=== PATIENT | male | born 1975 | race Caucasian/White ===

== ENCOUNTER 2019-01-17 17:54 | Inpatient (IN) ==
[2019-01-17 18:40] LABS: BASO# 0.06 X1000 (0.0-0.2); BASO% 0.4 % (0.0-0.8); EOS# 0.11 X1000 (0.0-0.7); EOS% 0.7 % (0.0-10.0); HEMATOCRIT 50.2 % (42.0-52.0); HEMOGLOBIN 17.5 g/dL (14.0-18.0); IMM GRAN# 0.04 X1000 (0.0-0.04); IMM GRAN% 0.3 % (0.0-0.5); LYMPH# 2.85 X1000 (1.2-3.4); MCH 29.5 PG (27-31); MCHC 34.9 g/dL (33-37); MCV 84.5 FL (81-99); MONO# 1.13 X1000 (0.11-0.59); MONO% 7.5 % (1.7-9.3); MPV 11.9 FL (7.4-10.4); NEUT# 10.81 X1000 (1.4-6.5); NEUT% 72.1 % (42.2-75.2); PLT 213 X1000 (130-400); RBC 5.94 XMIL (4.7-6.1); RDW 12.2 % (11.5-14.5)
[2019-01-17 18:53] LABS: INR 0.9; PROTIME 12.6 Seconds (11.0-16.0); PTT 27.3 Seconds (22.3-41.8)
[2019-01-17 18:56] LABS: ESTIMATED GFR > 60
[2019-01-17] MEDS ORDERED: LOVENOX 1 MG/KG SUBQ ONE (19:01)
[2019-01-17] MEDS ORDERED: NORCO-10 PO ONE (19:02)
[2019-01-17 19:07] LABS: AGAP 13; ALBUMIN 4.1 g/dL (3.5-5.0); ALKALINE PHOSPHATASE 111 U/L (32-122); BUN 7 mg/dL (8-22); CALCIUM 9.5 mg/dL (8.8-10.2); CHLORIDE 96 mmol/L (98-107); COSMO 287; CREATININE 0.9 mg/dL (0.7-1.2); GOT 18 U/L (10-34); GPT 28 U/L (10-44); POTASSIUM 4.7 mmol/L (3.5-5.1); SODIUM 133 mmol/L (136-145); TCO2 24 mmol/L (25-35); TOTAL PROTEIN 7.4 g/dL (6.3-8.3)
[2019-01-17 19:08] LABS: GLUCOSE 499 mg/dL (70-104)
[2019-01-17] MEDS ORDERED: HUMULIN R SUBQ ONE (19:12)
[2019-01-17] MEDS ORDERED: HUMULIN R (PARKWAY) ONE (19:58)
[2019-01-17] MEDS ORDERED: LOVENOX SUBQ ONE (20:00)
--- NOTE | 2019-01-17 20:33 | Diag Imaging Result Doc PS360 ---
CT ANGIOGRM PULMONARY ARTERIES - 01/17/2019 INDICATION: low oxygen sat hx of bilat PE TECHNIQUE: Axial CT images were obtained after administering intravenous contrast. Coronal MIP images were generated. COMPARISON: 12/26/2017 FINDINGS: There are several bilateral acute pulmonary emboli involving both main pulmonary arteries and most every segmental pulmonary artery. There is a large clot burden. There is moderate fatty change of the liver. No infiltrates. Bones are intact. IMPRESSION: Numerous bilateral pulmonary emboli with a hiatal clot burden. This report was discussed with Dr. Burnett on 01/17/2019 at 8:30 PM and was readback. This exam was performed using automated exposure control, adjustment of mA or kV according to patient size, and/or use of iterative reconstruction technique Electronically signed by Jimmy Sigala 01/17/2019 8:31 PM
--- NOTE | 2019-01-17 20:35 | Extremity Venous Study ---
Venous U/S Right Leg - 01/17/2019 INDICATION: dvt TECHNIQUE: COMPARISON: None FINDINGS: There is extensive, occlusive deep venous thrombosis of the right popliteal, posterior tibial, and peroneal veins. There are also several varicose vein branches of the greater saphenous vein in the posterior thigh that are thrombosed completely. The the femoral veins are patent. IMPRESSION: Extensive deep venous thrombosis at the level of the knee and calf. Electronically signed by Jimmy Sigala 01/17/2019 8:33 PM
[2019-01-17] MEDS ORDERED: MORPHINE IV ONE ×2 (20:46→20:50)
[2019-01-17] MEDS ORDERED: TYLENOL PO PRN (23:35)
[2019-01-17] MEDS ORDERED: ZOFRAN IV PRN (23:35)
[2019-01-17] MEDS ORDERED: NORCO-5 PO PRN (23:36)
[2019-01-18] MEDS: HUMALOG (PARKWAY) SUBQ SCH ×4 (06:42→20:41)
[2019-01-18 08:48] LABS: HEMOGLOBIN 16.7 g/dL (14.0-18.0); MCH 30.1 PG (27-31); MCHC 34.1 g/dL (33-37); MCV 88.4 FL (81-99); MPV 11.9 FL (7.4-10.4); RBC 5.54 XMIL (4.7-6.1); RDW 12.3 % (11.5-14.5); WBC 10.75 X1000 (4.8-10.8)
[2019-01-18] MEDS: NORCO-7.5 PO PRN ×3 (08:55→20:40)
[2019-01-18] MEDS: ELIQUIS PO SCH (08:55)
[2019-01-18] MEDS ORDERED: GLUCOPHAGE XR PO SCH (09:00)
[2019-01-18 09:01] LABS: AGAP 12; ALBUMIN 3.8 g/dL (3.5-5.0); ALKALINE PHOSPHATASE 110 U/L (32-122); BUN 11 mg/dL (8-22); CALCIUM 9.1 mg/dL (8.8-10.2); CHLORIDE 97 mmol/L (98-107); COSMO 281; CREATININE 0.7 mg/dL (0.7-1.2); ESTIMATED GFR > 60; GLUCOSE 371 mg/dL (70-104); GOT 26 U/L (10-34); GPT 25 U/L (10-44); MAGNESIUM 1.9 mg/dL (1.5-2.7); POTASSIUM 4.9 mmol/L (3.5-5.1); SODIUM 133 mmol/L (136-145); TCO2 24 mmol/L (25-35); TOTAL PROTEIN 6.6 g/dL (6.3-8.3)
[2019-01-18 09:13] LABS: HEMOGLOBIN A1C 11.3 % (4.8-6.0)
--- NOTE | 2019-01-18 11:54 | HISTORY AND PHYSICAL ---
PRIMARY CARE PROVIDER: HUGO Mccallum. CHIEF COMPLAINT: Right leg pain and numbness. HISTORY OF PRESENT ILLNESS: This is a 43-year-old gentleman with a history of prior DVT and pulmonary embolus, who presented to the emergency room complaining of right calf and posterior thigh pain along with shortness of breath. He stated that this woke him up during the previous night and it has increased throughout the day, prompting his visit to the emergency room. He denied change in sensation to bilateral feet/toes. He reports a history of DVT/PE having his first DVT in 1998 after having an appendectomy. He reports pulmonary embolus and recurring DVT around 2 years ago for which he was placed on Eliquis. He reports being unable to fill his Eliquis over the last 2 months due to lack of insurance. He is unaware of a prior hypercoagulable workup or hematology evaluation. He denies a family history of clots. PAST MEDICAL HISTORY: 1. Prior DVT and PE. 2. Val-rkekkcq-smriojobk diabetes mellitus. 3. Renal stones. 4. Sleep apnea. PAST SURGICAL HISTORY: Appendectomy. SOCIAL HISTORY: He smokes 5 packs of cigarettes a week. He denies alcohol or illicit drug use. ALLERGIES: No known drug allergies. HOME MEDICATIONS: A list will be obtained by the nursing staff and once it is verified, we will review and restart as is appropriate. REVIEW OF SYSTEMS: Discussed with patient with pertinent positives stated in the HPI. He denied any syncope or dizziness, any chest pain, palpitations, a productive cough, any PND or orthopnea, any nausea, vomiting, diarrhea, constipation, black or bloody vomitus or stools , hematuria, dysuria, frequency urgency. PHYSICAL EXAMINATION: GENERAL: This is a 43-year-old gentleman who is lying back in the bed, in no distress. VITAL SIGNS: Blood pressure is 101/55, with a heart rate of 89, respirations are 17, temperature is 97.9 degrees oral with O2 saturation 96% on 2 L nasal cannula. EYES: Pupils equal, round, react to light. EOMs are intact. Sclerae anicteric. HEENT: Head is normocephalic, atraumatic. Mucous membranes are moist. NECK: Supple with trachea midline. CARDIOVASCULAR: Regular rate and rhythm. S1 and S2 appreciated. He has no increased work of breathing noted. He has no lower extremity edema. Pedal pulses are 4+ bilateral. With capillary refill < 3 seconds X 10 toes. Left leg posterior tibial and popliteal pulses are palpable. I am unable to palpate Left leg femoral, posterior tibial or popliteal pulses due to the patient's refusal. Warmth and color are symmetrical. PULMONARY: Breath sounds are diminished throughout, clear. Chest rises and falls symmetrically with respiration. Chest wall is nontender to palpation. GASTROINTESTINAL: Abdomen is soft, nontender, nondistended. Bowel sounds in all 4 quadrants. GENITOURINARY: He denies CVA or suprapubic tenderness. NEUROLOGIC: He is alert oriented x3 with cranial nerves II through XII grossly intact. SKIN: Warm and dry with no rashes or lesions noted. LABORATORY AND DIAGNOSTIC DATA: WBC is 15 with hemoglobin 17.5, hematocrit 50.2 , platelets of 213,000. D-dimer 4.05. Sodium 133, potassium 4.7, BUN 7, creatinine 0.9 with a glucose of 499. TSH is 4.91. Hemoglobin A1c is 11.3. Right lower extremity Doppler reveals extensive DVT at the level of the knee and calf with occlusive deep vein thrombosis of the right popliteal, posterior tibial and peroneal veins with several varicose vein branches of the greater saphenous vein in the posterior thigh by that are thrombosed completely. The femoral veins are patent. Pulmonary arteriogram reveals several bilateral acute pulmonary emboli involving both main pulmonary arteries and almost every segmental pulmonary artery. There is a large clot burden. There is moderate fatty change of the liver. No infiltrates. Bones are intact. ASSESSMENT AND PLAN: 1. Extensive bilateral pulmonary emboli. Restart Eliquis, Hypercoag labs 2. Occlusive deep venous thrombosis, right lower extremity. 3. Dyspnea on exertion secondary to #1. Check room air resting and walking O2 saturations. 4. Cyg-dhrqbow-pffiubvby diabetes. Check HgB A1C, pattern blood glucose with sliding scale insulin. 5. Obstructive sleep apnea. 6. Prior history of pulmonary embolism and deep venous thromboses. PLAN: The patient has been admitted to the medical-surgical floor and placed on telemetry which will continue. Of note, room air saturation was obtained about 25 minutes after oxygen was discontinued. He was 92% walking and 93 to 95 percent sitting. Continue appropriate home medications once they have been verified I discussed with the patient and his the importance of being vigilant in taking Eliquis to avoid further clots and possibly . We also discussed Hematology follow up, they requested Dr Yip, we will schedule an appointment 4 weeks after discharge so that he can discuss the results of his hyper coag workup and further treatment. Further treatments pending hospital course. I discussed with the patient and that arterial dopplers could not be performed due to clot being present. Dictated by HUGO Lew for Ochoa Newton MD This chart was documented by, HUGO Lew and accurately reflects the services performed, treatment plan and medical decisions as attested by the providers signature Ochoa Newton MD. cc: HUGO Lew MD [facility]
[2019-01-18] MEDS ORDERED: JANUVIA PO ONE (18:06)
--- NOTE | 2019-01-18 21:58 | HISTORY AND PHYSICAL ---
Patient seen and examined by myself. Full note dictated and discussed with nurse practitioner. Patient was seen in the ER with swelling. He has a scheduled outpatient appointment in [place] at the [facility] tomorrow. States he has been having some calf pain. Denies any real chest pain, shortness of breath, fevers or chills. Notes that he has stopped his Eliquis due to cough. He has lost his insurance. While in the ER, he was diagnosed with a right lower extremity DVT that was quite extensive as well as bilateral PE. PLAN: We will admit patient to the hospital and will follow. His A1c was 11.3. His blood sugars certainly are very poorly controlled at home as well. cc: Ochoa Newton MD
[2019-01-19] MEDS: ELIQUIS PO SCH ×3 (01:20→22:23)
[2019-01-19 06:23] LABS: HEMATOCRIT 48.2 % (42.0-52.0); HEMOGLOBIN 16.4 g/dL (14.0-18.0); MCH 29.3 PG (27-31); MCV 86.2 FL (81-99); MPV 11.9 FL (7.4-10.4); RBC 5.59 XMIL (4.7-6.1); RDW 12.1 % (11.5-14.5); WBC 11.09 X1000 (4.8-10.8)
[2019-01-19] MEDS: NORCO-7.5 PO PRN ×4 (06:39→22:59)
[2019-01-19] MEDS: HUMALOG (PARKWAY) SUBQ SCH ×2 (06:39→11:22)
[2019-01-19 06:41] LABS: AGAP 12; BUN 17 mg/dL (8-22); CALCIUM 8.8 mg/dL (8.8-10.2); CHLORIDE 98 mmol/L (98-107); COSMO 283; CREATININE 0.6 mg/dL (0.7-1.2); ESTIMATED GFR > 60; GLUCOSE 268 mg/dL (70-104); POTASSIUM 4.5 mmol/L (3.5-5.1); SODIUM 136 mmol/L (136-145); TCO2 26 mmol/L (25-35)
[2019-01-19] MEDS: JANUVIA PO SCH (08:27)
[2019-01-19 16:12] LABS: URINE SOURCE CLEAN CATCH
[2019-01-19 16:18] LABS: BILIRUBIN URINE NEGATIVE (NEGATIVE); BLOOD URINE NEGATIVE (NEGATIVE); COLOR YELLOW; GLUCOSE URINE >1000 mg/dL (NEGATIVE); KETONE URINE NEGATIVE (NEGATIVE); LEUKOCYTES URINE NEGATIVE (NEGATIVE); NITRITE URINE NEGATIVE (NEGATIVE); PROTEIN URINE TRACE mg/dL (NEGATIVE); SP GRAVITY URINE 1.031; TURBIDITY URINE CLEAR (CLEAR); UROBILINOGEN URINE NORMAL (NORMAL)
[2019-01-19 16:19] LABS: UR EPITHELIAL CELLS <10 /HPF (<10); URINE BACTERIA NEGATIVE /HPF; URINE RBC <10 /HPF (<10); URINE WBC <10 /HPF (<10)
[2019-01-19] MEDS: HUMULIN R SUBQ SCH ×2 (17:22→22:24)
--- NOTE | 2019-01-20 04:13 | DISCHARGE SUMMARY ---
ADMISSION DATE: 01/17/2019 DISCHARGE DATE: 01/19/2019 ADDENDUM: Patient seen and examined by myself. Full note dictated and discussed with nurse practitioner. On discharge, Mr. Kovacs is in no respiratory distress. He is saturating in the mid 90s off oxygen. He is having extensive pain in his right lower extremity where his DVT is. He currently is on pain medication and Eliquis. He did not fail Eliquis as an outpatient as unfortunately he had stopped taking his Eliquis, which is what led to his bilateral pulmonary emboli and extensive DVT. Mr. Kovacs's appears to be quite angry this morning. She frequently was raising her voice and appeared somewhat unwilling to listen to my responses. She states that she has not been told anything the whole time they have been here. But interesting she was able to repeat verbatim what I told her yesterday which is he has an extensive DVT, that he is going to have pain for several weeks and probably several months, he needs to stay off work for at least 2 weeks. He needs to take it easy for the next few days, but then has to start pushing himself to get up and start walking. Discussed that there is no medication that dissolves a clot and given the extensive nature even surgical intervention of his right lower extremity would be impossible. She was angry that his leg was swollen at times. Discussed that due to the back flow occlusion, he does not drain his leg well. He has very good pulses in his foot and when he stands gravity plus blood flow pumps down into his leg but has difficulty being reabsorbed. Interestingly, even after her telling me this is what we talked about yesterday she again stated that she was not told anything. She is angry that he is having difficulty walking. States that prior to coming to the hospital, he had no difficulty walking although yesterday she told me he came to the hospital because of pain in his leg. Again, I discussed with her that even though he was up and ambulating last week and even the day before he came in that does not mean that the DVT does not cause pain. Discussed that most folks have pain with DVTs. The patient's blood sugar unfortunately is terribly controlled at home. His A1c is 11.3. I discussed this with them. They do not check blood sugars at home. He is unsure of the last time he had labs drawn. We offered nutrition support in the hospital. She declined. Stated they were going home. Discussed with both of them the importance of diabetes control to include risk factors of kidney damage, vision damage, heart attacks, strokes, neuropathy, etc. We will add Januvia. Prescription was sent. As for the DVT, discussed with them that they need to follow up outpatient with Dr. Yip, hematology. We will attempt to make this appointment before discharge. Although patient regardless of his clotting factors should consider staying on Eliquis lifelong. This is his 2nd episode of a deep venous thrombosis. This one occurred while he was still at work. Had not been traveling, injured or laying around. That would certainly suggests that he has some clotting disorder. Discussed with them that we can attempt to transfer to [facility] so they can have a 2nd opinion. She declined. Discussed that [facility] and [facility] both are currently on diversion and that [facility] is not accepting any transfers unless it is an [facility] and thankfully that is not the case. cc: Ochoa Newton MD
[2019-01-20] MEDS: HUMULIN R SUBQ SCH ×3 (06:18→16:51)
[2019-01-20] MEDS: NORCO-7.5 PO PRN ×2 (06:22→16:52)
--- NOTE | 2019-01-20 07:16 | Diag Imaging Result Doc PS360 ---
EXAM: CHEST-PORTABLE 01/20/2019 HISTORY: dyspnea TECHNIQUE: AP portable at 0542 COMMENT: There are atelectatic changes in the left base which were not present on 12/26/2017. The inspiration is less optimal. IMPRESSION: Left lower lobe atelectasis versus pneumonia. Electronically signed by Luis Chand 01/20/2019 7:14 AM
[2019-01-20 07:41] LABS: HEMATOCRIT 49.1 % (42.0-52.0); HEMOGLOBIN 16.3 g/dL (14.0-18.0); MCH 29.4 PG (27-31); MCHC 33.2 g/dL (33-37); MCV 88.6 FL (81-99); MPV 12.2 FL (7.4-10.4); RBC 5.54 XMIL (4.7-6.1); RDW 12.4 % (11.5-14.5)
[2019-01-20 07:51] LABS: AGAP 10; BUN 17 mg/dL (8-22); CALCIUM 8.8 mg/dL (8.8-10.2); CHLORIDE 99 mmol/L (98-107); COSMO 285; CREATININE 0.7 mg/dL (0.7-1.2); ESTIMATED GFR > 60; GLUCOSE 264 mg/dL (70-104); POTASSIUM 4.3 mmol/L (3.5-5.1); SODIUM 137 mmol/L (136-145); TCO2 28 mmol/L (25-35)
[2019-01-20] MEDS: ELIQUIS PO SCH (09:55)
[2019-01-20] MEDS: JANUVIA PO SCH (09:55)
[2019-01-20] MEDS ORDERED: MAXIPIME 1 GM in NS 50 ML IV SCH (10:45)
[2019-01-20] MEDS ORDERED: ZYVOX 600 MG/D5W 600 MG/300 ML IVPB IV SCH (10:45)
--- NOTE | 2019-01-20 15:32 | ECHO REPORT ---
ORDER DATE: 01/19/2019 ECHOCARDIOGRAM: INDICATION: Pulmonary embolus. FINDINGS: 1. Right atrium appears normal in size. 2. There is mild tricuspid regurgitation. RV systolic pressure of 35. 3. Normal RV size and systolic function. There is some obscurity near the more apical portions of the right ventricle with difficult visualization in that area. It does not appear to clearly suggest clot in that portion. I believe this is most likely off-axis views of a moderator band. 4. No significant pulmonic insufficiency. 5. Normal left atrial size at 3.6 cm. 6. No mitral prolapse. Trace mitral regurgitation. 7. Normal LV size, end-diastolic dimension of 4.2. Normal wall thicknesses with posterior and interventricular septal thickness of 1 cm each. Normal to hyperdynamic LV systolic function with an estimated EF of 70% with normal wall motion. 8. Aortic valve opens well. It is trileaflet. No evidence of stenosis or insufficiency. 9. Aorta appears normal in visualized segments. 10. No pericardial effusion seen. cc: MD Paula Berger MD
[2019-01-20 16:16] VITALS: BP 120/78
--- NOTE | 2019-01-21 16:39 | DISCHARGE SUMMARY ---
ADMISSION DATE: 01/17/2019 DISCHARGE DATE: 01/20/2019 FINAL DISCHARGE DIAGNOSES: 1. Extensive right lower extremity deep vein thrombosis. 2. Bilateral pulmonary embolism with large clot burden. 3. Poorly controlled diabetes mellitus type 2. 4. Obesity. CONSULTATIONS: Hematology consultation with Tanner Douglas MD. IMAGIN. Venous ultrasound of the right leg, which revealed an extensive DVT at the level of the knee and calf. 2. Pulmonary arteriogram which revealed numerous bilateral pulmonary emboli with large clot burden. 3. Echocardiogram which revealed an ejection fraction of 70%. Normal RV size and systolic function. HOSPITAL COURSE: Mr. Kovacs is a 43-year-old male with a history of DVT and PE, who presented to the ER with a chief complaint of right leg pain and numbness. The patient reports that he was on Eliquis up until 2 months ago due to lack of insurance. Upon arrival to [facility], a venous ultrasound of the right leg was done that revealed an extensive clot. This was then followed by a pulmonary arteriogram which revealed numerous bilateral pulmonary emboli. The patient was subsequently transferred to [facility] for hematology evaluation. The patient was seen by the oxygraph operator, who recommended Eliquis 10 mg twice a day for 7 days and then Eliquis 5 mg twice a day thereon after. An x-ray was done that revealed a possible pneumonia and so the patient was treated with antibiotics as well. The patient continued to improve clinically and was ultimately cleared for discharge home on 01/20/2019. The patient has been advised to follow up with Dr. Douglas-as scheduled. DISCHARGE MEDICATIONS: 1. Augmentin 1 tab oral twice a day x7 days. 2. Eliquis 10 mg p.o. twice a day x5 days. Then Eliquis 5 mg oral twice a day. 3. [place] 7.5/325 one tab oral every 4 hours p.r.n. for pain. 4. Metformin 500 mg p.o. twice a day. 5. Januvia 100 mg p.o. daily. DISCHARGE DIET: 1800 ADA diet. ACTIVITY: As tolerated. FOLLOWUP INSTRUCTIONS: The patient has been advised to follow up with Dr. Douglas as scheduled by his clinic. The patient will need to follow up with Manfred Lr, Nurse Practitioner at his primary care clinic for further discussion and adjustment on his diabetic regimen. cc: HUGO Saini MD
--- NOTE | 2019-01-21 23:27 | PROVIDER DOCUMENTATION ---
This chart was entered by Clementine Finch Scribe, acting as scribe for Asaf Burnett MD. HPI-Musculoskeletal Pain/Inj - GENERAL Chief Complaint: Extremity Pain Stated Complaint: EXTREMITY PAIN/POSS BLOOD CLOTS Time Seen by Provider: 01/17/19 18:39 Source: patient - HX OF PRESENT ILLNESS-MUSKULOSKELTAL Nature of Presenting Problem: pt is a 43 yr old male presenting with complaint of right calf, right posterior thigh pain, pt reports hx of DVTs and bilateral PE. pt denies any chest pain or shortness of breath. pt reports he had appointment with the vein clinic in [facility] tomorrow due to varicose veins. pt reports he was sleeping today when the pain woke him up. Quality of Pain: reports: throbbing Severity in ED: severe Onset/Duration: this afternoon Timing: still present Modifying Factors: improves with: nothing Any recent injury?: No Locality of Occurance: Home Similar Symptoms Previously?: Yes (hx of DVT, PE) Recently seen or treated by another doctor?: No - LOWER EXTREMITY PAIN/INJURY Lower Extremities Pain: thigh: right, other: right (calf) Context / Method of Injury: reports: other (no injury) Associated Symptoms: denies: numbness in legs/feet, sensory/motor loss, tingling in legs/feet Review of Systems - Adult - REVIEW OF SYSTEMS - ADULT Constitutional: denies: fever, fatique Eyes: denies: blurred vision, double vision Ears, Nose, Mouth & Throat: reports: no symptoms reported Cardiovascular: denies: chest pain, palpitations, syncope Respiratory: denies: cough, shortness of breath Gastrointestinal: reports: no symptoms reported Genitourinary: reports: no symptoms reported Musculoskeletal: reports: other (right thigh pain). denies: back pain, neck pain Integumentary: reports: other ("knots" posterior right thigh) Neurological: denies: dizziness/vertigo, headache/migraines, numbness Psychiatric: reports: no symptoms reported Endocrine: reports: no symptoms reported Hematologic/Lymphatic: reports: blood clots Allergic/Immunologic: reports: no symptoms reported All Other Systems: Reviewed and Negative Past History - Adult - PAST MEDICAL HISTORY-ADULT Review of Records: reports: Old Records Reviewed, Nursing Assessment Review, Medications Reviewed, Social history reviewed & non-contributory. Major Childhood Illnesses: reports: denies history Cardiovascular: reports: blood clots Respiratory: reports: denies history Gastrointestinal: reports: denies history Obstetrical/Gynecological: reports: denies history Genitourinary: reports: kidney stones Musculoskeletal: reports: denies history Neurological: reports: denies history Endocrine/Immune: reports: denies history, Diabetes Other Conditions: reports: denies history - PRIOR SURGERIES/PROCEDURES Surgical/Procedure History: reports: none - IMMUNIZATION STATUS Childhood Immunizations: See Nurse Assessment Flu Vaccine: See Nurse Assessment - FAMILY HISTORY Family History: reviewed, not pertinent - SOCIAL HISTORY Smoking: cigarettes, less than 1 pack/day Provider spent 3-5 mins advising pt. on dangers of tobacco.: Discussed manners to quit use, and f/u contacts for add'l counseling. Substance Use: denies Living Situation: family Physical Exam-Injury Related - Physical Exam-Injury Related Initial Vital Signs Reviewed: Yes General Appearance: appears well, alert, no apparent distress, obese Immobilization?: negative: backboard, C-collar Eyes: PERRL/EOMI Head, Ears, Nose, Mouth & Throat: normocephalic/atraumatic, moist mucous membranes Neck: non-tender, full range of motion, supple, normal inspection Respiratory: chest non-tender, lungs clear, normal breath sounds, no pleuratic chest pain, no respiratory distress, no accessory muscle use. negative: crackles, rales, rhonchi, increased rate Cardiovascular: normal peripheral pulses, no edema, no gallop, no JVD, no murmur , tachycardia Chest/Breast: deferred Peripheral Pulses: dorsalis-pedis (R): 2+, dorsalis-pedis (L): 2+ Abdominal Exam: normal bowel sounds, non tender, soft Lymphatic: no adenopathy Back Exam: normal inspection, no CVA tenderness, no vertebral tenderness Extremity: normal range of motion, normal capillary refill, calf tenderness ( right calf), swelling (right calf), other (warm to touch, right calf). negative : pulse deficit, slow capillary refill Integumentary: normal color, warm/dry, warm (right calf), other (palpable veins right calf, right posterior thigh, nodules right posteroir thigh). negative: erythema Neurologic: grossly normal, no motor/sensory deficits Psych/Mental Status: normal mood/affect, normal thought content, normal thought process, oriented x 3 - Glascow Coma Score Best Eye Response (Mullin): (4) open spontaneously Best Verbal Response (Mullin): (5) oriented Best Motor Response (Mullin): (6) obeys commands Mullin Total: 15 Progress - PLAN OF CARE/RESULTS Progress/Plan/Lab Results: A/P: Pt has multiple PE and DVT of Right calf. Started Lovenox 1 mg/kg, pt still smoking 5 PPD week. Has hx of bilateral PE and DVT in past. Will admit and control pain. Long discussion with tobacco cessation and methods to quit. Vitals stable. Pt in no acute respiratory distress. Will admit to Dr Vickers Result Diagrams: 01/20/19 06:50 01/20/19 06:50 - CT/MRI 1 CT Study: Angiogram Impression: Abnormal (Signed CT ANGIOGRM PULMONARY ARTERIES - 01/17/2019 INDICATION: low oxygen sat hx of bilat PE TECHNIQUE: Axial CT images were obtained after administering intravenous contrast. Coronal MIP images were generated. COMPARISON: 12/26/2017 FINDINGS: There are several bilateral acute pulmonary emboli involving both main pulmonary arteries and most every segmental pulmonary artery. There is a large clot burden. There is moderate fatty change of the liver. No infiltrates. Bones are intact. IMPRESSION: Numerous bilateral pulmonary emboli with a hiatal clot burden. This report was discussed with Dr. Burnett on 01/17/2019 at 8:30 PM and was readback. This exam was performed using automated exposure control, adjustment of mA or kV according to patient size, and/or use of iterative reconstruction technique Electronically signed by Jimmy Sigala 01/17/2019 8:31 PM) - ULTRASOUND (By Radiology) 1 US Study: Lower Ext Impression: Abnormal (EXTREMITY VENOUS STUDY Patient: DUSTIN PEREYRA Date: 01/17/19MR#: [id number] : 1975Acct#: [id number] Family Physician: Manfred Lr Venous U/S Right Leg - 01/17/2019 INDICATION: dvt TECHNIQUE: COMPARISON: None FINDINGS: There is extensive, occlusive deep venous thrombosis of the right popliteal, posterior tibial, and peroneal veins. There are also several varicose vein branches of the greater saphenous vein in the posterior thigh that are thrombosed completely. The the femoral veins are patent. IMPRESSION: Extensive deep venous thrombosis at the level of the knee and calf. Electronically signed by Jimmy Sigala 01/17/2019 8:33 PM 01/17/19203201/17/192034 Dictated by: Jimmy Sigala MD Dictated: 01/17/192030 Transcribed by: - 01/17/192030 CC:) - CONSULTS/PCP/HOSPITALIST Notification #1 *Consult/PCP/Hospitalist*: Dr Newton Time Discussed: 20:40 Reason/Comments: discussed plan of care for pt admit for DVT Consult Disposition: Admit Departure - Departure Date of Disposition Decision: 01/17/19 Time of Disposition Decision: 20:49 DIAGNOSIS: Pulmonary embolus, DVT (deep venous thrombosis), Tobacco abuse Disposition: ADMITTED INPATIENT 09 Certified Medical Emergency: Emergent Condition: Fair - Critical Care Note This patient required my direct & personal management of CC.: Yes Total Time (mins): 36 Critical Care Statement: This patient required my direct personal management to treat or rule out processes, the absence of which, could potentiallly result in sudden, clinically significant life or limb threatening deterioration. Attestation - Physician/ MARIO Attestation Patient care was provided by Advanced Practice Provider:: No The physician spent face to face time with patient:: Yes Advanced Practice Provider documentation review:: Supervising physician onsite and consulted in the evaluation and care of this patient. The physician did have a face to face encounter with the patient. This chart was documented by the indicated scribe, (Clementine Finch Scribe) and accurately reflects the services I performed and decisions made by me, Asaf Burnett MD, as attested by the provider's signature.
== END 2019-01-20 18:05 | disposition home or self-care (01) | DRG 299 ==
LOC: P.ED 17:54 → P.MEDSURG 17:55 → SUATTDRO 17:55 → 3N 01-19 10:29
PROVIDERS: ATTEND Internal Medicine
CPT/HCPCS: 71010; 71045; 71275; 80048; 80053; 81001; 81240; 81241; 82948; 83036; 83090; 83735; 84145; 84443; 85025; 85027; 85300; 85301; 85302; 85306; 85379; 85610; 85612; 85613; 85730; 86147; 87040; 93306; 93923; 93971; 94761; 96372; 96374; 99285; A9270; J0692; J1650; J1815; J2020; J2270; Q9967; XXXXX

== ENCOUNTER 2019-10-11 22:48 | Observation (INO) ==
[2019-10-11] MEDS ORDERED: ASPIRIN PO ONE (23:04)
[2019-10-11 23:23] LABS: BASO# 0.03 X1000 (0.0-0.2); BASO% 0.3 % (0.0-0.8); EOS# 0.06 X1000 (0.0-0.7); EOS% 0.6 % (0.0-10.0); HEMOGLOBIN 17.1 g/dL (14.0-18.0); IMM GRAN# 0.02 X1000 (0.0-0.04); IMM GRAN% 0.2 % (0.0-0.5); LYMPH# 2.28 X1000 (1.2-3.4); LYMPH% 24.3 % (20.5-51.1); MCH 29.8 PG (27-31); MCHC 34.2 g/dL (33-37); MCV 87.1 FL (81-99); MONO# 1.23 X1000 (0.11-0.59); MONO% 13.1 % (1.7-9.3); MPV 11.1 FL (7.4-10.4); NEUT# 5.76 X1000 (1.4-6.5); NEUT% 61.5 % (42.2-75.2); PLT 247 X1000 (130-400); RBC 5.74 XMIL (4.7-6.1); RDW 12.3 % (11.5-14.5); URINE SOURCE CLEAN CATCH; WBC 9.38 X1000 (4.8-10.8)
[2019-10-11 23:27] LABS: BILIRUBIN URINE NEGATIVE (NEGATIVE); BLOOD URINE SMALL (NEGATIVE); COLOR YELLOW; GLUCOSE URINE >1000 mg/dL (NEGATIVE); KETONE URINE TRACE mg/dL (NEGATIVE); LEUKOCYTES URINE NEGATIVE (NEGATIVE); NITRITE URINE NEGATIVE (NEGATIVE); PROTEIN URINE TRACE mg/dL (NEGATIVE); SP GRAVITY URINE 1.023; TURBIDITY URINE CLEAR (CLEAR); UR EPITHELIAL CELLS <10 /HPF (<10); URINE BACTERIA NEGATIVE /HPF; URINE RBC <10 /HPF (<10); URINE WBC <10 /HPF (<10); UROBILINOGEN URINE NORMAL (NORMAL)
[2019-10-11 23:43] LABS: AGAP 17; ALBUMIN 4.5 g/dL (3.5-5.0); ALKALINE PHOSPHATASE 86 U/L (32-122); BUN 14 mg/dL (8-22); CALCIUM 9.4 mg/dL (8.8-10.2); CHLORIDE 98 mmol/L (98-107); CK PROFILE 105 U/L (24-204); COSMO 282; CREATININE 0.8 mg/dL (0.7-1.2); ESTIMATED GFR > 60; GLUCOSE 264 mg/dL (70-104); GOT 23 U/L (10-34); GPT 24 U/L (10-44); POTASSIUM 4.5 mmol/L (3.5-5.1); SODIUM 136 mmol/L (136-145); TCO2 21 mmol/L (25-35); TOTAL BILIRUBIN 0.41 mg/dL (0.20-1.00); TOTAL PROTEIN 6.7 g/dL (6.3-8.3)
--- NOTE | 2019-10-12 00:08 | EKG Report ---
Test Performed on : 10/11/2019 10:59:12 PM Test Reason : cp Blood Pressure : / mmHG Vent. Rate : 103 BPM Atrial Rate : 103 BPM P-R Int : 168 ms QRS Dur : 086 ms QT Int : 316 ms P-R-T Axes : 030 -67 021 degrees QTc Int : 413 ms Sinus tachycardia. Left axis deviation Possible Lateral infarct , age undetermined Abnormal ECG When compared with ECG of 26-DEC-2017 14:32, No significant change was found Unconfirmed Result
[2019-10-12 00:13] LABS: INR 0.98; PROTIME 13.1 Seconds (11.0-16.0)
[2019-10-12 00:14] LABS: PTT 30.1 Seconds (22.3-41.8)
--- NOTE | 2019-10-12 01:11 | PROVIDER DOCUMENTATION ---
This chart was entered by Sugar Orellana Scribe, acting as scribe for Zoey Hurtado CRNP. HPI-Chest Pain - General Stated Complaint: CHEST PAIN/SOB/NUMBNESS/HISTORY OF BLOOD CLOTS Time Seen by Provider: 10/11/19 23:02 Source: patient Allergies/Adverse Reactions: Patient Allergies Allergy/AdvReac Type Severity Reaction Status Date / Time No Known Allergies Allergy Verified 10/11/19 23:30 Home Medications: Home Medication List Medication Instructions Recorded Confirmed Last Taken Type Metformin HCl [Metformin HCl ER] 500 mg PO BID #30 tab.er.24h 01/19/19 10/11/19 Unknown Rx Apixaban [Eliquis] 5 mg PO BID #60 tablet 01/20/19 10/11/19 Unknown Rx - History of Present Illness-CP Nature of Presenting Problem: 44 yom presents to er w/cc sudden onset sharp cp that does not travel w/ bilat arm and leg numbness and 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 pt had chronic rt LE edema. pt sts he has skipped 2 doses of Elaquis b/c he had teeth pulled 2x this month. denies nvd, fever and carmona. hx of htn, dm and PTE. Chest Pain Radiation: reports: no radiation Quality of Pain: reports: sharp Severity in ED: mild Onset/Duration: abrupt, just prior to arrival Timing: still present Context/Activities at Onset: reports: other (working) Associated Symptoms: reports: edema (chronic LE), shortness of breath. denies: fever/chills, nausea, vomiting Review of Systems - Adult - REVIEW OF SYSTEMS - ADULT Constitutional: reports: no symptoms reported. denies: chills, fever, night sweats Eyes: reports: no symptoms reported Ears, Nose, Mouth & Throat: reports: no symptoms reported Cardiovascular: reports: see HPI, chest pain, edema (chronic LE edema rt). denies: irregular heart rate, orthopnea, palpitations Respiratory: reports: see HPI, shortness of breath. denies: cough, dyspnea on exertion, wheezing Gastrointestinal: reports: no symptoms reported. denies: diarrhea, nausea, vomiting Genitourinary: reports: no symptoms reported Musculoskeletal: reports: no symptoms reported Integumentary: reports: no symptoms reported Neurological: reports: see HPI, numbness (bilat arm and leg). denies: headache/migraines, syncope, tremors Psychiatric: reports: no symptoms reported Endocrine: reports: no symptoms reported Hematologic/Lymphatic: reports: no symptoms reported Allergic/Immunologic: reports: no symptoms reported All Other Systems: Reviewed and Negative Past History - Adult - PAST MEDICAL HISTORY-ADULT Review of Records: reports: Nursing Assessment Review, Medications Reviewed, Social history reviewed & non-contributory. Major Childhood Illnesses: reports: denies history Cardiovascular: reports: blood clots Respiratory: reports: sleep apnea Gastrointestinal: reports: denies history Obstetrical/Gynecological: reports: denies history Genitourinary: reports: kidney stones Musculoskeletal: reports: denies history Neurological: reports: denies history Endocrine/Immune: reports: Diabetes Other Conditions: reports: denies history - PRIOR SURGERIES/PROCEDURES Surgical/Procedure History: reports: appendectomy, other (lithrotripsy) - IMMUNIZATION STATUS Childhood Immunizations: See Nurse Assessment Flu Vaccine: See Nurse Assessment - FAMILY HISTORY Family History: reviewed, not pertinent - SOCIAL HISTORY Smoking: other (former smoker) Substance Use: none/never Physical Exam-General - PHYSICAL EXAM-ADULT Initial Vital Signs Reviewed: Yes - CONSTITUTIONAL General Appearance: appears well, alert, no apparent distress, obese. negative: cachetic, lethargic, slow to respond - EYES Eyes: PERRL/EOMI, pink conjunctivae - HEAD, EARS, NOSE, MOUTH & THROAT HENMT: normocephalic/atraumatic, moist mucous membranes, normal ENT inspection - NECK Neck: non-tender, full range of motion, supple, normal inspection - RESPIRATORY Respiratory: chest non-tender, lungs clear, normal breath sounds - CARDIOVASCULAR Cardiovascular: normal peripheral pulses, no edema, no gallop, no JVD, no murmur , tachycardia. negative: regular rate, rhythm, extra beats, friction rub, irregularly irregular - GASTROINTESTINAL (ABDOMEN) Abdominal Exam: normal bowel sounds, non tender, soft - LYMPHATIC Lymphatic: no adenopathy - MUSCULOSKELETAL Back Exam: normal inspection, no CVA tenderness, no vertebral tenderness Extremity: normal range of motion, non-tender, normal inspection, no pedal edema , no calf tenderness, normal capillary refill, other (rt LE edema). 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 as tested, grossly normal, no motor/sensory deficits - PSYCHIATRIC Psych/Mental Status: normal mood/affect, normal thought content, normal thought process, oriented x 3 - HEART Score HEART Score: History: Moderately Suspicious HEART Score: ECG: Non-Specific Repolarization Disturbance/LBBB/PM HEART Score: Age: < or = 45 Years HEART Score: Risk Factors for Atherosclerotic Disease: > or = 3 Risk Factors or History of Atherosclerotic Disease HEART Score: Troponin: < or = Normal Limit Total HEART Score:: 4 Progress - PLAN OF CARE/RESULTS Progress/Plan/Lab Results: Vital Signs - 8 hr 10/11/19 22:52 Temperature 98.1 F Pulse Rate 103 H Respiratory Rate 20 Blood Pressure 125/87 O2 Sat by Pulse Oximetry 95 Laboratory Results - last 24 hr 10/11/19 10/11/19 10/11/19 23:10 23:10 23:10 WBC 9.38 RBC 5.74 Hgb 17.1 Hct 50.0 MCV 87.1 MCH 29.8 MCHC 34.2 RDW Std Deviation 12.3 Plt Count 247 MPV 11.1 H Immature Gran % (Auto) 0.2 Neut % (Auto) 61.5 Lymph % (Auto) 24.3 [place] % (Auto) 13.1 H Eos % (Auto) 0.6 Baso % (Auto) 0.3 Immature Gran # (Auto) 0.02 Neut # (Auto) 5.76 Lymph # (Auto) 2.28 [place] # (Auto) 1.23 H Eos # (Auto) 0.06 Baso # (Auto) 0.03 PT INR PTT (Actin FS) D-Dimer, Quantitative 0.34 Sodium 136 Potassium 4.5 Chloride 98 Carbon Dioxide 21 L Anion Gap 17 BUN 14 Creatinine 0.8 Estimated GFR/1.73 m2 > 60 BUN/Creatinine Ratio 18 Glucose 264 H Calculated Osmolality 282 Calcium 9.4 Total Bilirubin 0.41 AST 23 ALT 24 Alkaline Phosphatase 86 Creatine Kinase 105 Troponin T Total Protein 6.7 Albumin 4.5 Globulin 2.2 Albumin/Globulin Ratio 2.0 Urine Source Urine Color Urine Turbidity Urine pH Ur Specific [place] Urine Protein Ur Glucose (Stick) Ur Ketones (Stick) Urine Blood Urine Nitrite Urine Bilirubin Urobilinogen Dipstick Urine Leukocytes Urine WBC (Auto) Urine RBC (Auto) U Epithel Cells (Auto) Urine Bacteria (Auto) 10/11/19 10/11/19 10/11/19 23:10 23:10 23:10 WBC RBC Hgb Hct MCV MCH MCHC RDW Std Deviation Plt Count MPV Immature Gran % (Auto) Neut % (Auto) Lymph % (Auto) [place] % (Auto) Eos % (Auto) Baso % (Auto) Immature Gran # (Auto) Neut # (Auto) Lymph # (Auto) [place] # (Auto) Eos # (Auto) Baso # (Auto) PT 13.1 INR 0.98 PTT (Actin FS) 30.1 D-Dimer, Quantitative Sodium Potassium Chloride Carbon Dioxide Anion Gap BUN Creatinine Estimated GFR/1.73 m2 BUN/Creatinine Ratio Glucose Calculated Osmolality Calcium Total Bilirubin AST ALT Alkaline Phosphatase Creatine Kinase Troponin T < 0.010 Total Protein Albumin Globulin Albumin/Globulin Ratio Urine Source CLEAN CATCH Urine Color YELLOW Urine Turbidity CLEAR Urine pH 6.0 Ur Specific [place] 1.023 Urine Protein TRACE A Ur Glucose (Stick) >1000 A Ur Ketones (Stick) TRACE A Urine Blood SMALL A Urine Nitrite NEGATIVE Urine Bilirubin NEGATIVE Urobilinogen Dipstick NORMAL Urine Leukocytes NEGATIVE Urine WBC (Auto) <10 Urine RBC (Auto) <10 U Epithel Cells (Auto) <10 Urine Bacteria (Auto) NEGATIVE Orders Category Date Time Status Cardiac Monitoring DIRECTED Care 10/11/19 23:04 Active Saline Loc NOW Care 10/11/19 23:03 Active cxr [CHEST-2 VIEWS] [RAD] Stat Exams 10/11/19 23:03 Taken CBC WITH ELECTRONIC DIFF [HEME] Stat Lab 10/11/19 23:10 Completed CK PROFILE [SP CHEM] Stat Lab 10/11/19 23:10 Completed COMPREHENSIVE METABOLIC PANEL [CHEM] Stat Lab 10/11/19 23:10 Completed D-DIMER [COAG] Stat Lab 10/11/19 23:10 Completed PROTIME WITH INR [COAG] Stat Lab 10/11/19 23:10 Completed PTT [COAG] Stat Lab 10/11/19 23:10 Completed TROPONIN T Stat Lab 10/11/19 23:10 Completed UA NIMS W/REFLEX CULT [URINALYSIS] Stat Lab 10/11/19 23:10 Completed Aspirin Med 10/11/19 23:04 Discontinued 325 mg PO NOW ONE EKG [EKG] Stat Ther 10/11/19 23:03 Draft Result Diagrams: 10/11/19 23:10 10/11/19 23:10 - EKG 1 Time of EKG reading by physician:: 23:08 EKG Read and Signed by:: Perlita Smith EKG Interpretation (*Must complete 3 of following elements*): Abnormal Rate: 103 Rhythm: ST Shafer: left QRS: normal [place] Interval: normal ST Wave: normal Comments: -STEMI - XRAY 1 XRAY Study: Chest Impression: Normal - CONSULTS/PCP/HOSPITALIST Notification #1 *Consult/PCP/Hospitalist*: Dr. Sánchez/Hospitalist Time Discussed: 00:46 Consult Disposition: Admit Departure - Departure Date of Disposition Decision: 10/12/19 Time of Disposition Decision: 01:10 DIAGNOSIS: Chest pain Disposition: ADMITTED INPATIENT 09 Certified Medical Emergency: Emergent Condition: Stable Referrals and Follow-Ups: Manfred Lr CRNP [Primary Care Provider] - - Critical Care Note This patient required my direct & personal management of CC.: No Attestation - Physician/ MARIO Attestation Patient care was provided by Advanced Practice Provider:: Yes Advanced Practice Provider:: Zoey Hurtado Advanced Practice Provider documentation review:: The Mid-level provider documentation, treatment plan and medical decision making was reviewed by the physician who agrees with all treatment and medical decision making by the MLP. The physician spent face to face time with patient:: No Advanced Practice Provider documentation review:: Supervising physician onsite and consulted in the evaluation and care of this patient. The physician did not have a face to face encounter with the patient. This chart was documented by the indicated scribe, (Sugar Orellana Scribe) and accurately reflects the services I performed and decisions made by me, Zoey Hurtado CRNP, as attested by the provider's signature.
--- NOTE | 2019-10-12 02:05 | HISTORY AND PHYSICAL ---
REASON FOR ADMISSION: Chest pain this evening. HISTORY OF PRESENT ILLNESS: Mr. Jorge A Kovacs is a 44-year-old male with past medical history of hypertension, sleep apnea, kidney stones, type 2 diabetes, prior DVT and PE's. Recently underwent tooth extraction over the course of 5 days, which required him to withhold use of Eliquis on 2 separate occasions. He reports that 2 days after resumption of his anticoagulants and while at work, he developed retrosternal chest pain which was nonradiating, sharp, associated with lightheadedness, shortness of breath and with exertion. It took a while for the pain to ease off, i.e. 1 hour, before he could feel better. When he tried to exert himself a little more, he still had some residual pain. No nausea, vomiting, palpitations, antecedent history of new onset lower extremity swelling and pain. No cough, fever, chills. No GI or complaints. No focal neurological complaints. REVIEW OF SYSTEMS: Twelve system review was done, positive findings per HPI. ALLERGIES: None. MEDICATIONS: He is on Eliquis 5 mg b.i.d., metformin 500 mg b.i.d. SURGICAL HISTORY: Appendectomy, umbilical hernia repair. SOCIAL HISTORY: Does not smoke, drink, or use drugs. , lives with . FAMILY HISTORY: Notable for heart disease. LABORATORY WORK: White count 9000, hemoglobin and hematocrit 17 and 50, platelet count 247,000 with normal differential. BUN 14, creatinine 0.8. Glucose 264. Troponin's negative. CK normal. D-dimer normal. PT and PTT normal. Urinalysis greater than 1000 glucose, otherwise unremarkable. Chest film reviewed by me, mildly decreased inspiratory effort but, accounting for this, there is no acute cardiopulmonary changes. EKG with normal sinus rhythm, left axis deviation, no ST changes consistent with ischemia. PHYSICAL EXAMINATION: GENERAL: A morbidly obese, Middle-aged man who is not in acute distress. Alert and oriented x3. Normal mood and affect. VITAL SIGNS: Blood pressure 125/87, heart rate 103, respiratory rate 20, temperature is 98.1. HEENT: Head is normocephalic, atraumatic. Eyes: STEPH, EOMI. He is anicteric. Not pale. ENT: Oropharynx grossly normal. No central cyanosis noted. NECK: Short and thick. No JVD or carotid bruit. No thyromegaly. CHEST: Clear when auscultated. Good air entry both lung mai. CARDIOVASCULAR SYSTEM: First, second heart sounds heard. No gallops, murmurs, rubs. Rhythm is regular. ABDOMEN: Abdomen shows truncal obesity with no masses or organomegaly. Bowel sounds are hypoactive. RECTAL: Deferred at this time. EXTREMITIES: Good distal pulse volumes, regular, symmetrical. No edema, clubbing or cyanosis. NEUROLOGIC: Gross focal deficits. SKIN: Intact. No breakdown, lesions, erythema. MUSCULOSKELETAL: Grossly normal. ASSESSMENT: 1. Chest pain syndrome with a heart score 5. GALE risk score of 2. We will consult Dr. Calero, who is on-call for Cardiology. I will defer to him to decide how he wants to proceed with this patient, either with intervention versus noninvasive management and aggressive medical management. Start patient on statins, aspirin. Check A1c. Modify or other modifiable risk factors. 2. Type 2 diabetes. Start patient on sliding scale. 3. History of thrombophilia. Resume Rebeca. cc: MD Manfred Garrison CRNP
[2019-10-12] MEDS ORDERED: NITROGLYCERIN TOP ONE (04:00)
[2019-10-12] MEDS ORDERED: ZOFRAN IV PRN (04:00)
[2019-10-12] MEDS ORDERED: TYLENOL PO PRN (04:00)
[2019-10-12 05:37] LABS: HEMOGLOBIN A1C 9.4 % (4.8-6.0)
[2019-10-12] MEDS ORDERED: PRILOSEC PO SCH (07:00)
--- NOTE | 2019-10-12 07:16 | Diag Imaging Result Doc PS360 ---
EXAM: CHEST-2 VIEWS INDICATION: cp TECHNIQUE: 2 views COMPARISON: 01/20/2019 FINDINGS: The lungs are grossly clear. There is no discrete pleural fluid collection or pneumothorax. The cardiomediastinal silhouette and central vasculature are grossly unremarkable. IMPRESSION: No evidence of acute pathology by plain radiograph. Electronically signed by Obi Orellana 10/12/2019 7:14 AM
[2019-10-12] MEDS: HUMALOG SUBQ SCH ×4 (08:01→17:05)
[2019-10-12] MEDS ORDERED: ELIQUIS PO SCH (09:00)
[2019-10-12] MEDS ORDERED: ASPIRIN PO SCH (09:00)
--- NOTE | 2019-10-12 13:16 | CARDIOLOGY CONSULTATION ---
DATE: 10/12/2019 CHIEF COMPLAINT: Chest pain. HISTORY OF PRESENT ILLNESS: Mr. Kovacs is a 44-year-old, white male with a history of diabetes and a previous DVT. He presented for evaluation of chest pain. This occurred at work yesterday while he was walking up some stairs. It was described as a stabbing pain associated with some dizziness. It lasted around an hour and a half and did not recover with rest initially. There was no associated nausea or vomiting. He did have some mild shortness of breath. It has not recurred since then. PAST MEDICAL HISTORY: 1. Significant for DVT with previous PE. He reports having at least 3 different episodes of this. 2. Diabetes. SOCIAL HISTORY: He does not smoke. He does not drink alcohol. He quit smoking around a year ago. FAMILY HISTORY: Significant for a CVA in his mother in her 60s. REVIEW OF SYSTEMS: A 10 system review of systems is negative except for those things mentioned in the HPI. PHYSICAL EXAMINATION: Vital Signs: He is afebrile, heart rate 95, blood pressure 116/65. General: He is in no acute distress. HEENT: Oropharynx is moist. Normal dentition. Eye examination shows pink conjunctivae and white sclerae. Neck: Examination shows no obvious thyromegaly or thyroid tenderness. Cardiovascular: He sounds to be in a regular rate and rhythm. He has no obvious murmurs. He has no S3. He has no lower extremity edema. Chest: Examination is clear bilaterally. He has no increased work of breathing. Abdomen: Soft, nontender, nondistended. He has no obvious organomegaly. Skin: Examination is warm and dry throughout without any rashes. Neurological: He is moving all extremities well. He has no lateralizing deficits. PERTINENT DATA: His chest x-ray shows no evidence of significant abnormalities. His EKG shows sinus rhythm. His lab data shows a white count of 9.3, hematocrit of 50, platelet count 247,000. His INR is 0.98. His D-dimer is 0.34, which is normal. His sodium is 136, potassium is 4.5, BUN 14, creatinine 0.8. Cardiac enzymes have been negative times multiple sets. ASSESSMENT: Mr. Kovacs is a 44-year-old, diabetic gentleman who presented with chest pain. PLAN: We will proceed with myocardial perfusion imaging. Further recommendations to follow the results of that study. cc: Rocky Menon MD
[2019-10-12 16:04] VITALS: BP 115/66
--- NOTE | 2019-10-12 17:38 | Diag Imaging Result Document ---
PROCEDURE NAME: MYOCARDIAL PERF SCAN, STR/REST - 10/12/2019 REQUESTING PHYSICIAN: Dr. Carrasco, in the [facility]. INDICATION: A 44-year-old male with chest pain. DESCRIPTION: The patient came into the nuclear lab and received rest injection of technetium 99 sestamibi 15.5 mCi. Multiple tomographic views of the cardiac structures were obtained at rest. Subsequently, the patient underwent a treadmill exercise protocol. At peak exercise the patient was injected with technetium 99 sestamibi 46.3 mCi. Multiple tomographic views of the cardiac structures were obtained following the completion of the protocol. SUMMARY OF THE ELECTROCARDIOGRAPHIC PORTION OF THE STUDY: Resting ECG showed sinus rhythm with a rate of 85 beats per minute. Resting blood pressure is 126/75. Resting ECG shows poor R wave progression across the precordial leads, early transition, possible inferior scar. The patient walked on the treadmill for about 6 1/2 minutes. The patient completed two stages of Az protocol, walked for a little bit into the third stage, achieving a maximum heart rate of 151 beats per minute, representing 86% of maximum predicted heart rate for the patient's age. Peak blood pressure was 153/88. Maximum workload is 7.2 METS. Peak exercise ECG shows sinus tachycardia without any ischemic changes. The patient reported mild dyspnea at peak exercise. No chest pain or palpitations. The patient was injected with radiotracer one minute prior to termination of exercise. Following the completion of the test, heart rate and blood pressure returned back to their baseline. In summary, electrocardiographic response to exercise is negative for effort induced ischemia. Exercise capacity is decreased by 35%. Level of stress based on double product of peak systolic blood pressure x peak heart rate is 23,000, which is okay. The blood pressure response was physiologic. No arrhythmias were noted. SUMMARY OF THE MYOCARDIAL PERFUSION PORTION OF THE STUDY: Poststress tomographic views of the left ventricle showed normal homogeneous distribution of radiotracer throughout the entire left ventricular myocardium. There was no convincing evidence of any postexercise defect. The rest images showed normal perfusion. Polar plots revealed the same. There is no convincing evidence of any inducible ischemia nor myocardial scar. Gated SPECT shows normal left ventricular systolic function. Ejection fraction is calculated at 69% with normal ventricular volumes and no wall motion abnormality. The lung/heart ratio is normal. TID is 1.03. SUMMARY: This study shows: 1. Normal electrocardiographic response to exercise. The patient achieved 86% of maximum predicted heart rate for his age with a workload of 7.2 METS. Blood pressure response was physiologic. No chest pain was reported. Exercise capacity is decreased by 35%. 2. Normal poststress myocardial perfusion scan. There is no scintigraphic evidence of effort induced myocardial ischemia. 3. Normal left ventricular systolic function with ejection fraction of 69% with normal ventricular volumes and no wall motion abnormality. This study would suggest low risk for ischemic events. cc: MD Honey Story PA
--- NOTE | 2019-10-13 15:15 | DISCHARGE SUMMARY ---
ADMISSION DATE: 10/12/2019 DISCHARGE DATE: 10/12/2019 DISPOSITION: Home. FOLLOWUP: 1. Dr. Manfred Lr. 2. Dr. Douglas. CONSULTATIONS DURING THIS ADMISSION: Cardiology was consulted. Patient was seen by Dr. Rocky Menon. INVASIVE PROCEDURES DONE DURING THIS ADMISSION: None. IMAGING STUDIES OF SIGNIFICANCE: 1. A chest x-ray showed no evidence of acute pathology. 2. A myocardial perfusion scan showed no evidence of effort-induced myocardial ischemia, ejection fraction of 69% with normal ventricular wall, and no wall motion abnormality. 3. Initial EKG did show a normal sinus rhythm with left axis deviation. ADMISSION DIAGNOSES: 1. Chest pain. 2. Diabetes. 3. History of thrombophilia. DISCHARGE DIAGNOSES: 1. Atypical chest pain with negative electrocardiograms, troponins, and unremarkable stress test, most likely noncardiac. 2. History of thrombophilia with multiple pulmonary embolisms. Patient is on chronic Eliquis. Follows up with Dr. Douglas. 3. Diabetes mellitus, on metformin. The patient's A1c is 9.4. He has been advised to follow up with his primary care doctor and possibly have another agent added to this. 4. Morbid obesity with a body mass index of 39.8, with management advised. 5. Sporadic tobacco use. DISCHARGE MEDICATIONS: 1. Metformin 500 b.i.d. 2. Eliquis 5 mg b.i.d. 3. Omeprazole 20 mg p.o. daily. PRESENTING COMPLAINT: Chest pain. HISTORY OF PRESENTING COMPLAINT: Mr. Kovacs is a 44-year-old, male who presented to the emergency department because of acute onset of chest pain associated with chest pressure. He has a history of DVTs and PEs. Upon presenting, he was evaluated. Initial EKG did not show any ST- segment or T-wave abnormality. Troponin was negative. Because of his risk factors, he was admitted for further cardiac risk stratification. HOSPITAL COURSE: Mr. Kovacs was admitted to the to the medical floor. His troponins were trended 4 times, which were all negative. Repeat EKGs were unremarkable. The patient was seen by cardiology and a decision was made for a stress test. This was done. The official report suggests that there is no scintigraphic evidence of effort-induced myocardial ischemia. Ejection fraction was 69% with normal ventricular wall. Mr. Kovacs, at this point, is completely asymptomatic. We think he is okay to be discharged. He is supposed to follow up with his primary care. We have also advised that the pain is probably noncardiac and that would need to also follow up with GI to rule out any possible upper GI pathologies. Mr. Kovacs's A1c during the hospital course was 9.4. He is only on metformin. I think he is going to benefit from another agent. This has been addressed with him and he will follow up with his primary care doctor on that. He still smokes every now and then, not as much as he used to. He has been advised on complete cessation. All the discharge instructions have been discussed with him and he voiced understanding. At the time of his discharge, his blood pressure is 115/66, pulse of 75, respirations are 24, temperature is 98.2 degrees. Mr. Kovacs is completely asymptomatic. His physical exam is also unremarkable. Discharge time 34 minutes cc: MD Manfred Nevarez CRNP Sammy Becdach, MD [facility]
== END 2019-10-12 18:25 | disposition home or self-care (01) ==
LOC: ED 22:48 → 4N 22:48 → SUATTDRO 22:49
PROVIDERS: ATTEND Internal Medicine